=== PATIENT | male | born 1965 | race Caucasian/White ===

== ENCOUNTER → 2019-05-06 12:01 | Outpatient (CLI) | payer BC, SELFPAY ==
--- NOTE | 2019-05-06 | DI.US.S_ITS ---
PROCEDURE: US ABDOMEN LIMITED INDICATIONS: BILATERAL INGUINAL PAIN TECHNIQUE: Real-time focused scanning was performed of the inguinal region, with image documentation. COMPARISON: None. FINDINGS: No inguinal hernia or other groin abnormality seen bilaterally. IMPRESSION: No inguinal hernia bilaterally. Dictated by: Jeronimo MAYO Interpreted: Ragini Pelaez MD on 05/06/2019 at 16:43 Approved by: Ragini Pelaez MD, PhD on 05/06/2019 at 17:12
== END ==
PROVIDERS: PCP Family Medicine; Visit Provider Orthopaedic Surgery Sports Medicine
DX: R10.32 Left lower quadrant pain (principal); R10.31 Right lower quadrant pain; M25.552 Pain in left hip; M25.551 Pain in right hip
CPT/HCPCS: 76705

== ENCOUNTER 2022-09-19 14:17 | Outpatient (CLI) | payer OTHER, SELFPAY ==
[2022-09-19] VITALS (8 sets, daily range): BP systolic 101–125; BP diastolic 66–77; PULSE 51–59; RESP 11–18; O2SAT 96–98
--- NOTE | 2022-09-19 14:18 | DI.RAD.S_ITS ---
PROCEDURE: PAIN L/S TRANSFORAMINAL INJECT INDICATIONS: SPONDYLOSIS COMPARISON: None. FINDINGS: Fluoroscopic spot filming was performed to verify placement of spinal needles at the L5-S1 level(s), as labeled on the films. Appropriate location(s) of the needle tip(s) was confirmed by injection of iodinated contrast. IMPRESSION: Fluoroscopic guidance utilized for an L5-S1 transforaminal epidermal steroid injection. Dictated by: Joaquin Pinedo M.D. on 09/19/2022 at 16:37 Approved by: Joaquin Pinedo M.D. on 09/19/2022 at 16:38
[2022-09-19] MEDS: MIDAZOLAM 2 MG/2 ML VIAL IV (15:30)
[2022-09-19] MEDS: TRIAMCINOLONE 40 MG/ML VIAL 80 MG IM (15:30)
[2022-09-19] MEDS: IOPAMIDOL 15 ML VIAL 3 ML INJ (15:34)
[2022-09-19] MEDS: BUPIVACAINE 0.25% (PF) VIAL 2 ML INJ (15:34)
[2022-09-19] MEDS: DEXAMETHASONE 10 MG/ML VIAL 20 MG INJ (15:34)
--- NOTE | 2022-09-19 15:50 | PM.PROC.IR.1 ---
Date/Time/Diagnoses Date of procedure: 09/19/22 Time of procedure: 15:50 Pre-procedure diagnosis: 1. FORAMINAL STENOSIS WITH LE SYMPTOMS Post-procedure diagnosis: same Procedure Notes Procedure: 1. FLUOROSCOPICALLY GUIDED CONTRAST CONTROLLED TRANSFORAMINAL EPIDURAL STEROID INJECTION - Left L5/S1 Indications: Paul is referred by Dr. Mosley for treatment of HNP with Left LE Symptoms Physician: Ernie Rendon Total Fluoroscopy time (seconds): 13 Total sedation minutes: 13 Complications: none Procedure in detail & Post-procedure care: FINDINGS Foraminal Nerve Root Compression secondary to disc disease and facet hypertrophy DESCRIPTION OF PROCEDURE Following review of allergy and review of potential side effects and complications, including, but not necessarily limited to, infection, allergic reaction, local tissue breakdown, stroke, temporary or permanent nerve injury, paralysis, and possible , the patient indicated that the patient understood and agreed to proceed. An informed consent document was signed by the patient, witnessed by a nurse, and placed in the patient's chart. Additionally, other treatment options including medications, modalities, and physical therapy were reviewed with the patient. After review of previous anaesthesic history and IV conscious sedation the patient was deemed safe to proceed with today?s procedure with IV conscious sedation as ASA class II designation. Safety time-out was performed to confirm patient ID, procedure to be performed and site of procedure. IV sedation was accomplished with a combination of 2mg of Versed was administered by the RN after DO order, titrated to patient comfort during the course of the procedure while the patient remained responsive to all verbal commands In the prone position following sterile prep and drape of the lumbar region, the Left L5/S1 posterior neuroforamen was identified fluoroscopically. The skin was anesthetized via a 25-gauge 1.5-inch needle with 1% lidocaine solution. At this point, a 25-gauge 3.5-inch spinal needle was atraumatically introduced and advanced under fluoroscopic guidance through the posterior Left L5/S1 neuroforamen to approximately the anterior aspect of the canal. Depth was confirmed on lateral view. Following negative aspiration, injection of approximately 1.5cc of Isovue 200 under live fluoroscopy in the AP view confirmed excellent flow along the nerve root, into the epidural space without vascular or intrathecal uptake observed Radiological data, including multiple fluoroscopic views of the lumbosacral spine, reveal a spinal needle at the Left L5/S1 posterior neuroforamen. Subsequent views show flow of contrast material flowing superiorly and inferiorly along the nerve root confirming epidural flow. Subsequently, a test dose of 1.5 cc of 1% lidocaine solution was administered and patient was observed for two minutes for signs or symptoms of complications, including abdominal pain, shortness of breath, bilateral upper or lower extremity weakness, nausea and vomiting, prior to steroid injection. At this point, a total of 4cc or 20mg of dexamethasone and 80mg of kenalog was injected without incident. The procedure tolerated the procedure well without signs or symptoms of complications prior to transfer to the recovery area continued monitoring without incident. The patient was then transferred to the recovery area where they were observed for an appropriate time after the injection. The patient reported a VAS score of 7 prior to the procedure and a post-procedure VAS of 0. POST OP INSTRUCTIONS The patient was provided a Pain Log to continue to record their response to the target-specific procedure prior to follow-up visit with their referring physician. Additionally, specific post-injection care instructions and a contact number to our office were provided if concerns arise regarding possible complications associated with the procedure are suspected.
== END 2022-09-19 16:06 | disposition home or self-care (01) ==
LOC: RAD 14:18
PROVIDERS: PCP Family Medicine; Referring Provider Physical Medicine & Rehabilitation; Visit Provider Physical Medicine & Rehabilitation
DX: M51.17 Intervertebral disc disorders with radiculopathy, lumbosacral region (principal)
CPT/HCPCS: 64483; 99152; J1100; J2250; J3490

== ENCOUNTER 2022-10-24 14:25 | Outpatient (CLI) | payer OTHER, SELFPAY ==
[2022-10-24] VITALS (8 sets, daily range): BP systolic 115–133; BP diastolic 67–84; PULSE 52–59; RESP 12–18; TEMP 36.7; O2SAT 97–99
--- NOTE | 2022-10-24 14:27 | DI.RAD.S_ITS ---
PROCEDURE: PAIN L INTERLAMINAR/CAUDAL INJ INDICATIONS: SPONDYLOSIS COMPARISON: None. FINDINGS: Fluoroscopic spot filming was performed to verify placement of spinal needles at the left L5-S1 interlaminar level(s), as labeled on the films. Appropriate location(s) of the needle tip(s) was confirmed by injection of iodinated contrast. IMPRESSION: Access needle tip in the left L5-S1 interlaminar space for translaminar epidural steroid injection. Dictated by: Ragini Pelaez MD, PhD on 10/24/2022 at 16:37 Approved by: Ragini Pelaez MD, PhD on 10/24/2022 at 16:38
[2022-10-24] MEDS: MIDAZOLAM 2 MG/2 ML VIAL IV (15:38)
[2022-10-24] MEDS: BETAMETHASONE 30 MG/5 ML MDV 6 MG INJ (15:44)
[2022-10-24] MEDS: DEXAMETHASONE 10 MG/ML VIAL 20 MG INJ (15:44)
[2022-10-24] MEDS: BUPIVACAINE 0.25% (PF) VIAL 2 ML INJ (15:44)
[2022-10-24] MEDS: IOPAMIDOL 15 ML VIAL 3 ML INJ (15:45)
--- NOTE | 2022-10-24 15:57 | P.PCN_ITS ---
Date/Time/Diagnoses Date of procedure: 10/24/22 Time of procedure: 15:57 Pre-procedure diagnosis: 1. HNP WITH RADICULAR FEATURES, 2. MULTILEVEL CENTRAL STENOSIS, Post-procedure diagnosis: same Procedure Notes Procedure: 1. FLUOROSCOPICALLY GUIDED CONTRAST CONTROLLED INTERLAMINAR EPIDURAL STEROID INJECTION - L5/S1 Indications: Paul is referred by Dr. Mosley for treatment of Bilateral Foraminal Stenosis L>R LE symptoms. Physician: Ernie Rendon Total Fluoroscopy time (seconds): 10 Total sedation minutes: 13 Complications: none Procedure in detail & Post-procedure care: FINDINGS Multilevel Central Spinal Stenosis with Nerve Root Compression DESCRIPTION OF PROCEDURE Fluoroscopically guided, contrast-controlled L5/S1 translaminar epidural steroid injection. Following review of allergy and review of potential side effects and complications, including, but not necessarily limited to, infection, allergic reaction, local tissue breakdown, temporary as well as permanent nerve injury, paralysis, stroke and possible , the patient indicated that the patient understood and agreed to proceed. An informed consent document was signed by the patient, witnessed by a nurse, and placed in the patient's chart. Additionally, other treatment options including modalities, medications, and physical therapy were reviewed with the patient. After review of previous anaesthesic history and IV conscious sedation the patient was deemed safe to proceed with today?s procedure with IV conscious sedation as ASA class II designation. Safety time-out was performed to confirm patient ID, procedure to be performed and site of procedure. IV sedation was accomplished with a combination of 2mg of Versed administered by the RN after DO order, titrated to patient comfort during the course of the procedure while the patient remained responsive to all verbal commands. In the prone position, following sterile prep and drape of the lumbar region, the L5/S1 translaminar space was identified fluoroscopically. The skin was anesthetized via a 25-gauge, 1.5-inch needle with 1% lidocaine solution. At this point, a 22-gauge short bevel spinal needle was atraumatically introduced and advanced under fluoroscopic guidance into the region of the L5/S1 translaminar space. Depth was confirmed on lateral view. Radiological data, including multiple fluoroscopic views of the lumbar spine, reveal a spinal needle at the L5/S1 translaminar space. Lateral views then show placement of the needle in the epidural space. Subsequent views show contrast material flowing superiorly and inferiorly in the epidural space. No vascular or intrathecal uptake is observed. At this point, using loss of resistance technique with saline and air, the epidural space was entered. This was confirmed following negative aspiration with injection of approximately 1.5cc of Isovue 200, showing excellent epidural flow without vascular or intrathecal uptake. At this point, 1 cc of 1% lidocai ne solution combined with 4cc or 20mg of dexamethasone and 12mg of betamethasone was injected without incident. The patent tolerated the procedure without signs of symptoms of complications prior to transfer to the recovery area for further monitoring. The patient was then transferred to the recovery area where they were observed for an appropriate period of time after the injection. The patient reported a VAS score of 10 prior to the procedure and a post-procedure VAS of 1. POST OP INSTRUCTIONS The patient was provided a Pain Log to continue to record their response to the target-specific procedure prior to follow-up visit with their referring physician. Additionally, specific post-injection care instructions and a contact number to our office were provided if concerns arise regarding possible complications associated with the procedure are suspected.
== END 2022-10-24 16:08 | disposition home or self-care (01) ==
PROVIDERS: PCP Family Medicine; Referring Provider Physical Medicine & Rehabilitation; Visit Provider Physical Medicine & Rehabilitation
DX: M51.17 Intervertebral disc disorders with radiculopathy, lumbosacral region (principal); M48.07 Spinal stenosis, lumbosacral region
CPT/HCPCS: 62323; 99152; J0702; J1100; J2250; J3490